=== PATIENT | male | born 1990 | race Caucasian/White ===

== ENCOUNTER 2017-03-21 19:38 | Emergency (ER) | payer OTHER ==
[~2017-03-21] VITALS: Ht 190.5 cm; Wt 130.8 kg
[2017-03-21 21:09] VITALS: BP 142/78
== END 2017-03-21 21:10 | disposition home or self-care (01) ==
LOC: M.ERS 19:38
DX: S09.90XA Unspecified injury of head, initial encounter (principal); R07.89 Other chest pain; W00.0XXA Fall on same level due to ice and snow, initial encounter; Y93.29 Activity, other involving ice and snow; Y92.098 Other place in other non-institutional residence as the place of occurrence of the external cause; Y99.8 Other external cause status

== ENCOUNTER 2017-12-12 16:39 | Emergency (ER) | payer OTHER ==
[~2017-12-12] VITALS: Ht 172.7 cm; Wt 127.5 kg
[2017-12-12 17:09] LABS: ABSOLUTE BASOPHILS 0.1 thou/uL (0.0-0.2); ABSOLUTE EOSINOPHILS 0.1 thou/uL (0.0-0.7); ABSOLUTE LYMPHOCYTES 2.2 thou/uL (0.8-5.3); ABSOLUTE MONOCYTES 0.7 thou/uL (0.0-1.2); ABSOLUTE NEUTROPHILS 5.9 thou/uL (1.6-8.1); BASOPHILS 1.1 %; EOSINOPHILS 1.3 %; HEMATOCRIT 40.1 % (42.0-52.0); HEMOGLOBIN 13.1 gm/dL (14.0-18.0); LYMPHOCYTES 24.8 %; MCH 25.9 pg (26.0-34.0); MCHC 32.7 g/dL (28.0-37.0); MCV 79.3 fL (80.0-100.0); MONOCYTES 7.6 %; MPV 7.9 fl. (7.2-11.1); NUCLEATED RBCS 0 /100WBC; PLATELET COUNT* 323 thou/uL (150-400); POLYS 65.2 %; RBC 5.06 mil/uL (4.50-6.00); RDW-CV 14.7 % (10.5-14.5)
[2017-12-12 17:17] LABS: ANION GAP 8 mmol/L (7-16); BUN 17 mg/dL (7-18); CHLORIDE 101 mmol/L (98-107); CO2 27 mmol/L (21-32); CREATININE 1.2 mg/dL (0.6-1.3); GLUCOSE 102 mg/dL (70-99); POTASSIUM 3.6 mmol/L (3.5-5.1); SODIUM 136 mmol/L (136-145)
[2017-12-12 17:20] LABS: APTT 29.9 Seconds (25.0-31.3); PROTIME 10.2 Seconds (9.20-11.50)
[2017-12-12 17:41] LABS: ALBUMIN 3.8 g/dL (3.4-5.0); ALKALINE PHOSPHATASE 88 U/L (46-116); CK-MB MASS 0.8 ng/mL (<0.5-3.6); LIPASE 71 U/L (73-393); NT-PRO BRAIN NAT PEPTIDE 5 pg/mL (<300); SGOT 20 U/L (15-37); SGPT 33 U/L (30-65); TOTAL BILIRUBIN 0.1 mg/dL (<0.1-1.0); TOTAL PROTEIN 7.7 g/dL (6.4-8.2); TROPONIN-I LEVEL <0.06 ng/mL (<0.06)
[2017-12-12 17:52] VITALS: BP 126/70
--- NOTE | 2017-12-13 14:30 | EKG ---
[place] [address] ELECTROCARDIOGRAM REPORT Name: RASHMIZENYSONIYA MALAVE Room: [facility]#: [id number] Admission: 12/12/17 Attend Phys: Discharge: 12/12/17 Date of : 89 Report #: [id number] THIS REPORT FOR: //name// [facility] ED Test Date: 2017-12-12 Test Time: 16:42:38 Pat Name: SONIYA CONTE Department: Room: Gender: M Clinical Esthetician: Thompson MATTHESW : 1990 Requested By: All Trujillo Order Number: [id number] MD: Lester Gillis Measurements Intervals [place] Rate: 92 P: 35 [place]: 177 QRS: 71 QRSD: 108 T: 37 QT: 359 QTc: 445 Interpretive Statements Sinus rhythm No previous ECG available for comparison Electronically Signed On 12-13-2017 14:30:47 WINDOWS SECURITY ANALYST by Lester Gillis [email or web address] <ELECTRONICALLY SIGNED> By: Lester Gillis MD, [facility] 12/13/17 1430 1642 1642 Lester Gillis MD, FACC /EPI
== END 2017-12-12 17:52 | disposition home or self-care (01) ==
LOC: M.ERS 16:39
PROVIDERS: Family Medicine
DX: R07.89 Other chest pain (principal)